=== PATIENT | female | born 1965 | race Caucasian/White ===

== ENCOUNTER → 2017-03-11 | Outpatient (CLI) | payer BC ==
[~2017-03-11] MED LIST: BIOT1CAP3 PO; CYAN250T PO; DULO60CA44 PO; GLUCOSAMINE LIQUID PO; MULT-506 PO
--- NOTE | 2017-03-11 09:30 | DIAGNOSTIC IMAGING REPORT ---
ABDOMINAL ULTRASOUND, RIGHT UPPER QUADRANT HISTORY: Right upper quadrant abdominal pain. Chest pain.. COMPARISON: None. FINDINGS: Hepatic echogenicity is slightly increased. No hepatic lesions are identified. There is no biliary ductal dilatation. The common bile duct measures 3 mm in caliber. There are no gallstones. The gallbladder is normal. The pancreatic body is normal. The head and tail are slightly obscured. There is no right hydronephrosis. IMPRESSION: 1. No gallstones or biliary ductal dilatation. 2. Suspected fatty infiltration of the liver. Electronically signed by: Jonatan Fox M.D. 03/11/2017 9:28 AM Dictated Date/Time: 03/11/2017 9:27 AM
== END | disposition home or self-care (01) ==
LOC: C.ULTRBC 08:52
PROVIDERS: ATTEND Nurse Practitioner Family
DX: R07.89 Other chest pain (principal); R10.11 Right upper quadrant pain; R11.0 Nausea; R53.83 Other fatigue

== ENCOUNTER → 2017-03-13 | Outpatient (CLI) | payer BC ==
--- NOTE | 2017-03-13 14:43 | MAMMOGRAPHY REPORT ---
BILATERAL DIGITAL SCREENING MAMMOGRAM TOMOSYNTHESIS WITH CAD: 03/13/2017 CLINICAL HISTORY: Routine screening. Patient has no complaints. TECHNIQUE: Breast tomosynthesis in addition to standard 2D mammography was performed. Current study was also evaluated with a Computer Aided Detection (CAD) system. COMPARISON: Comparison is made to exams dated: 03/12/2016 mammogram, 03/21/2015 ultrasound biopsy, 2014 ultrasound, 03/13/2015 mammogram, 03/09/2015 mammogram - [facility], and 2 mammogram. BREAST COMPOSITION: There are scattered areas of fibroglandular density in both breasts. FINDINGS: No suspicious masses, calcifications, or areas of architectural distortion are noted in ei ther breast. There has been no significant interval change compared to prior exams. A biopsy marker clip is again noted in the right upper inner quadrant. IMPRESSION: ACR BI-RADS CATEGORY 2: BENIGN There is no mammographic evidence of malignancy. A 1 year screening mammogram is recommended. The pa tient will receive written notification of the results. Approximately 10% of breast cancers are not detected with mammography. A negative mammographic report should not delay biopsy if a clinically suggestive mass is present. Paola Polanco M.D. /:03/13/2017 13:28:36 Welcome Center Attendant: Gerda HOOD)(Raphael), [facility] letter sent: Normal 1/2 BI-RADS Code: ACR BI-RADS Category 2: Benign
== END | disposition home or self-care (01) ==
LOC: C.MAMM 09:54
PROVIDERS: ATTEND Obstetrics & Gynecology
DX: Z12.31 Encounter for screening mammogram for malignant neoplasm of breast (principal)

== ENCOUNTER → 2017-07-21 | Outpatient (CLI) | payer BC ==
--- NOTE | 2017-07-21 11:53 | DIAGNOSTIC IMAGING REPORT ---
CHEST 2 VIEWS ROUTINE HISTORY: Chest discomfort. COMPARISON: None. FINDINGS: The lungs are clear. Cardiac silhouette is normal in size. No pleural effusions. No pneumothorax. IMPRESSION: No acute process. Electronically signed by: Raphael Levine M.D. 07/21/2017 11:52 AM Dictated Date/Time: 07/21/2017 11:50 AM
== END | disposition home or self-care (01) ==
LOC: C.RAD1850 11:08
PROVIDERS: ATTEND Nurse Practitioner Family
DX: R07.89 Other chest pain (principal); H20.9 Unspecified iridocyclitis

== ENCOUNTER → 2017-08-20 | Outpatient (CLI) | payer BC | END | disposition home or self-care (01) | LOC: C.PAPS 10:44 | PROVIDERS: ATTEND Obstetrics & Gynecology | DX: N95.0 Postmenopausal bleeding (principal) ==

== ENCOUNTER 2018-02-06 07:50 | Emergency (ER) | payer BC, OTHER ==
[~2018-02-06] VITALS: Ht 165.1 cm; Wt 95.3 kg
[2018-02-06 07:55] VITALS: Ht 165.1 cm; Wt 95.3 kg
[2018-02-06] MEDS ORDERED: SODIUM CHLORIDE 0.9% 1000ML 1,000 ML IV STA (08:13)
[2018-02-06] MEDS ORDERED: KETOROLAC TROMETHAMINE 30 MG/ML VIAL IV STA (08:13)
[2018-02-06] MEDS ORDERED: ONDANSETRON INJ 2 MG/ML 2 ML VIAL IV STA (08:13)
[2018-02-06 08:33] LABS: EOS % 0.4 %; EOS ABS # 0.03 K/uL (0-0.5); HEMATOCRIT 38.1 % (37-47); HEMOGLOBIN 13.8 g/dL (12.0-16.0); IG# 0.01 K/uL (0.00-0.02); LYMPH % 3.4 %; LYMPH ABS # 0.26 K/uL (1.2-3.4); MEAN CELL VOLUME 78.7 fL (80-100); MEAN CORPUSCULAR HEMOGLOBIN 28.5 pg (25-34); MEAN CORPUSCULAR HGB CONC 36.2 g/dl (32-36); MONO % 3.3 %; MONO ABS # 0.25 K/uL (0.11-0.59); NEUT % 92.8 %; NEUT ABS # 7.12 K/uL (1.4-6.5); PLATELET COUNT 182 K/uL (130-400); RED CELL DISTRIBUTION WIDTH CV 12.9 % (11.5-14.5); WHITE BLOOD COUNT 7.67 K/uL (4.8-10.8)
[2018-02-06] MEDS ORDERED: FLUT50SP45 (08:33)
[2018-02-06] MEDS ORDERED: ROSU20TA PO (08:33)
[2018-02-06 08:50] LABS: ALBUMIN 3.8 gm/dl (3.4-5.0); CALCIUM 8.5 mg/dl (8.5-10.1); CREATININE 0.7 mg/dl (0.60-1.20); POTASSIUM 3.5 mmol/L (3.5-5.1)
[2018-02-06 08:53] LABS: TOTAL PROTEIN 7.8 gm/dl (6.4-8.2)
[2018-02-06] MEDS ORDERED: OXYCODONE HCL IR 5 MG TAB (IMMEDIATE RELEASE) PO STA (09:12)
[2018-02-06] MEDS ORDERED: ONDA4TAB10 SL (09:28)
[2018-02-06] MEDS ORDERED: OXYC1TAB3 PO (09:28)
[2018-02-06 09:38] VITALS: BP 164/104; PULSE 96; TEMP 36.6; O2SAT 96
[2018-02-06] MEDS ORDERED: AZITTAB PO (10:13)
--- NOTE | 2018-02-06 10:32 | EMERGENCY ROOM VISIT NOTE ---
History First contact with patient: 08:00 Chief Complaint: DENTAL PAIN Stated Complaint: DENTAL PAIN, VOMITTING, DIARRHEA Nursing Triage Summary: Right upper and lower dental pain starting last evening. Alternating advil and tylenol, not helping pain at all. Developed nausea overnight, vomiting, and generalized joint pain overnight. Unable to get ahold of dentist, has long history of dental issues. History of Present Illness The patient is a 52 year old female who presents to the Emergency Room with multiple complaints, including right lower dental pain, nausea, vomiting and watery diarrhea. The patient reports that she fell down a few steps on Friday when her dog tripped her. The patient reports that she did not have any discomfort at that time. That evening, she started to develop right lower dental pain. She reports a history of chronic dental problems, including in the right lower jaw region. Usually when she gets this discomfort, her dentist prescribes a Z-Blayne. The patient reports that she started to develop generalized belly pain, nausea, vomiting, diarrhea and joint pain overnight. Patient reports a history of IBS and fibromyalgia. The patient has been alternating ibuprofen and Tylenol. She is wondering if these medications are upsetting her stomach. She denies any specific injuries from her fall, including headache, neck pain, back pain, rib pain or other extremity injuries. She currently rates her overall discomfort a 10 out of 10. Review of Systems HEENT: Denies dizziness, visual problems, hearing loss, tinnitus. Denies difficulty swallowing or oral lesions. PULMONARY: Denies cough, shortness of breath, sputum production or hemoptysis. CARDIOVASCULAR: Denies chest pain, palpitations, dyspnea on exertion, orthopnea or peripheral edema. GASTROINTESTINAL: See HPI. GENITOURINARY: Denies dysuria, frequency, urgency or nocturia. NEUROLOGIC: Denies history of epilepsy, CVA, TIA or chronic headaches. MUSCULOSKELETAL: History of fibromyalgia. SKIN: Denies rashes or lesions. PSYCHIATRIC: Denies history of depression or mental illness. ENDOCRINE: Denies history of diabetes or thyroid disorders. Past Medical/Surgical History Medical Problems: (1) Fibromyalgia (2) H/O migraine (3) History Of Tobacco Use (4) Hyperlipidemia, Unspecified (5) IBS (irritable bowel syndrome) Family History Diabetes mellitus FH: cancer FH: heart disease FH: lung disease Hypertension Social History Smoking Status: Never Smoker Alcohol Use: occasionally Drug Use: none Marital Status: Housing Status: lives with significant other Occupation Status: unemployed Current/Historical Medications Scheduled Azithromycin (Zithromax Z-Blayne), 0 PO UD Duloxetine Hcl (Cymbalta), 60 MG PO DAILY Fluticasone Propionate (Nasal) (Allergy Nasal Sparks 24 Ho), 2 SPRAYS NA DAILY Ondasetron Odt (Zofran Odt), 4 MG SL Q6H Rosuvastatin Calcium (Crestor), 1 TAB PO DAILY Scheduled PRN Oxycodone Ir (Roxicodone Ir), 1-2 TAB PO Q4H PRN for Pain Physical Exam Vital Signs Date Time Temp Pulse Resp B/P (MAP) Pulse Ox O2 Delivery O2 Flow Rate FiO2 02/06/18 09:38 36.6 96 18 164/104 96 02/06/18 09:24 96 18 164/104 96 02/06/18 07:55 36.6 110 22 140/90 95 Room Air Physical Exam CONSTITUTIONAL: Healthy and well nourished. Alert and oriented X 3 with positive affect. Patient does not appear in any acute distress. HEENT: Normocephalic, atraumatic. Pupils equal, round and reactive. Ears and nares are clear. No facial edema, subconjunctival hemorrhage, epistaxis, hemotympanum, raccoon's eyes or ross sign. OROPHARYNX: No gingival erythema, fluctuance or pointing. No posterior pharyngeal erythema, tonsillar hypertrophy or exudates. Negative trismus. NECK: Full active range of motion without discomfort. LYMPHATICS: No cervical chain adenopathy. RESPIRATORY: Clear to auscultation bilaterally with no wheezing, crackles, rhonchi or stridor. CARDIOVASCULAR: Regular rate and rhythm with no murmurs, rubs or gallops. GASTROINTESTINAL: Bowel sounds present in all quadrants. Patient has mild and generalized tenderness to palpation. Negative McBurney's point tenderness. Negative Vazquez sign. Negative CVA tenderness. No abdominal rigidity, guarding or rebound. MUSCULOSKELETAL: Full range of motion of all joints without discomfort. INTEGUMENTARY: No rash or other significant dermatologic conditions noted. HEMATOLOGIC: No ecchymosis or petechiae. NEUROLOGIC: No focal neurologic deficits noted. Medical Decision & Procedures Laboratory Results 02/06/18 08:18 Red Blood Count 4.84, Mean Corpuscular Volume 78.7, Mean Corpuscular Hemoglobin 28.5, Mean Corpuscular Hemoglobin Concent 36.2, Mean Platelet Volume 8.0, Neutrophils (%) (Auto) 92.8, Lymphocytes (%) (Auto) 3.4, Monocytes (%) (Auto) 3.3, Eosinophils (%) (Auto) 0.4, Basophils (%) (Auto) 0.0, Neutrophils # (Auto) 7.12, Lymphocytes # (Auto) 0.26, Monocytes # (Auto) 0.25, Eosinophils # (Auto) 0.03, Basophils # (Auto) 0.00 02/06/18 08:18 Test 02/06/18 08:18 02/06/18 08:25 White Blood Count 7.67 K/uL (4.8-10.8) Red Blood Count 4.84 M/uL (4.2-5.4) Hemoglobin 13.8 g/dL (12.0-16.0) Hematocrit 38.1 % (37-47) Mean Corpuscular Volume 78.7 fL (80-100) Mean Corpuscular Hemoglobin 28.5 pg (25-34) Mean Corpuscular Hemoglobin Concent 36.2 g/dl (32-36) Platelet Count 182 K/uL (130-400) Mean Platelet Volume 8.0 fL (7.4-10.4) Neutrophils (%) (Auto) 92.8 % Lymphocytes (%) (Auto) 3.4 % Monocytes (%) (Auto) 3.3 % Eosinophils (%) (Auto) 0.4 % Basophils (%) (Auto) 0.0 % Neutrophils # (Auto) 7.12 K/uL (1.4-6.5) Lymphocytes # (Auto) 0.26 K/uL (1.2-3.4) Monocytes # (Auto) 0.25 K/uL (0.11-0.59) Eosinophils # (Auto) 0.03 K/uL (0-0.5) Basophils # (Auto) 0.00 K/uL (0-0.2) RDW Standard Deviation 37.0 fL (36.4-46.3) RDW Coefficient of Variation 12.9 % (11.5-14.5) Immature Granulocyte % (Auto) 0.1 % Immature Granulocyte # (Auto) 0.01 K/uL (0.00-0.02) Anion Gap 7.0 mmol/L (3-11) Est Creatinine Clear Calc Drug Dose 104.9 ml/min Estimated GFR () 113.8 Estimated GFR (Non- 98.2 BUN/Creatinine Ratio 28.6 (10-20) Calcium Level 8.5 mg/dl (8.5-10.1) Total Bilirubin 0.5 mg/dl (0.2-1) Direct Bilirubin 0.1 mg/dl (0-0.2) Aspartate Amino Transf (AST/SGOT) 19 U/L (15-37) Alanine Aminotransferase (ALT/SGPT) 24 U/L (12-78) Alkaline Phosphatase 118 U/L (45-117) Total Creatine Kinase 79 U/L (26-192) Total Protein 7.8 gm/dl (6.4-8.2) Albumin 3.8 gm/dl (3.4-5.0) Lipase 127 U/L (73-393) Urine Color YELLOW Urine Appearance CLEAR (CLEAR) Urine pH 6.0 (4.5-7.5) Urine Specific [place] 1.020 (1.000-1.030) Urine Protein NEG (NEG) Urine Glucose (UA) NEG (NEG) Urine Ketones TRACE (NEG) Urine Occult Blood TRACE (NEG) Urine Nitrite NEG (NEG) Urine Bilirubin NEG (NEG) Urine Urobilinogen NEG (NEG) Urine Leukocyte Esterase NEG (NEG) Urine RBC 0-4 /hpf (0-4) Urine WBC 0 /hpf (0-5) Urine Epithelial Cells 10-20 /lpf (0-5) Urine Bacteria NEG (NEG) The above labs were reviewed, and did not show any significant abnormalities. Medications Administered Medications (Trade) Dose Ordered Sig/Luma Route Start Time Stop Time Status Last Admin Dose Admin Ketorolac Tromethamine (Toradol Inj) 30 mg NOW STAT IV 02/06/18 08:13 02/06/18 08:15 DC 02/06/18 08:23 30 MG Sodium Chloride 1,000 ml @ 999 mls/hr Q1H1M STAT IV 02/06/18 08:13 02/06/18 09:13 DC 02/06/18 08:22 999 MLS/HR Ondansetron HCl (Zofran Inj) 4 mg NOW STAT IV 02/06/18 08:13 02/06/18 08:15 DC 02/06/18 08:22 4 MG Oxycodone HCl (Roxicodone Immediate Rel Tab) 5 mg NOW STAT PO 02/06/18 09:12 02/06/18 09:13 DC 02/06/18 09:22 5 MG ED Course Patient history and physical exam were performed. Nurse's notes were reviewed. Vital signs were reviewed, showing a blood pressure 140/90. Patient is tachycardic at 110 bpm. She is afebrile. IV access was established, and labs were drawn. The patient was hydrated with a liter normal saline, and was also administered IV Toradol and Zofran for pain and nausea. Review of labs did not show any significant abnormalities. The patient was still having dental pain, and was administered Lorane 5/325. At this point, the patient was encouraged to contact her dentist for further follow-up. She was provided prescriptions for Zithromax, Zofran and OxyIR 5 mg. She was instructed to follow-up with her PCP with any persistent GI symptoms, returning to the emergency department as needed for any worsening condition. The patient was happy with plan of care, voiced understanding of all discharge instructions, and rated her discomfort a 5 out of 10 at the conclusion of my exam. Medical Decision Patient presents with a constellation of symptoms that I do not feel are related. The patient does complain of dental pain, and has had a history of chronic dental issues. It is possible that she has a small infection. I would not suspect this to cause her GI symptoms, which also could be viral in etiology. She has no significant lab abnormalities. I do not suspect acute cardiopulmonary etiology. The patient does not appear to have suffered any significant injuries from her fall, therefore I do not feel that further imaging is warranted. [place] Drug Monitoring Program Search Results: patient reviewed within database, no issues identified Medication Reconcilliation Current Medication List: was personally reviewed by me Blood Pressure Screening Patient's blood pressure: Normal blood pressure Impression Primary Impression: Pain, dental Additional Impression: Nausea, vomiting and diarrhea Departure Information Prescriptions Azithromycin (ZITHROMAX Z-BLAYNE) 250 Mg Tab 0 PO UD, #1 PKT 2 TABS DAY 1, THEN 1 TAB DAILY FOR 4 DAYS Prov: Avel Taveras PA 02/06/18 Ondasetron Odt (ZOFRAN ODT) 4 Mg Tab 4 MG SL Q6H for Nausea, #10 TAB Prov: Avel Taveras PA 02/06/18 Oxycodone Ir (Roxicodone Ir) 5 Mg Tab 1-2 TAB PO Q4H Y for Pain, #15 TAB For Initial Treatment Prov: Avel Taveras PA 02/06/18 Referrals Fang Martinez (PCP) Patient Instructions [facility] Problem Qualifiers
== END 2018-02-06 09:39 | disposition home or self-care (01) ==
LOC: C.EDB 07:51 → C.EDA 09:39
DX: K08.89 Other specified disorders of teeth and supporting structures (principal); R11.2 Nausea with vomiting, unspecified; R19.7 Diarrhea, unspecified; M79.7 Fibromyalgia; Z87.898 Personal history of other specified conditions; Z87.19 Personal history of other diseases of the digestive system